=== PATIENT | male | born 1980 | race African-American/Black ===

== ENCOUNTER 2016-09-15 09:42 | Emergency (ER) | payer SELFPAY ==
[~2016-09-15] VITALS: Ht 185.4 cm; Wt 122.0 kg
[2016-09-15] MEDS ORDERED: MOTRIN800 MG PO (12:50)
[2016-09-15 12:51] VITALS: BP 149/82
== END 2016-09-15 12:53 | disposition home or self-care (01) ==
LOC: EME 09:42
DX: J02.9 Acute pharyngitis, unspecified (principal); R09.89 Other specified symptoms and signs involving the circulatory and respiratory systems; J30.2 Other seasonal allergic rhinitis
CPT/HCPCS: 87651 90; 99281; 99283; J1885

== ENCOUNTER 2016-09-17 06:02 | Emergency (ER) | payer OTHER ==
[~2016-09-17] VITALS: Ht 185.4 cm; Wt 120.3 kg
[~2016-09-17 06:02] MED LIST: MOTRIN800 MG PO
[2016-09-17 06:37] LABS: EOSINOPHIL (%) 0 % (0-5); HEMATOCRIT 42.9 % (38.0-50.0); IMMATURE GRANULOCYTE (%) 0.3 % (0.0-0.7); INSTRUMENT ABS NEUTROPHIL CT 6.4 K/uL; LYMPHOCYTE COUNT 1.1 K/uL (1.0-2.8); MCH 26.9 PG (29.0-34.0); MCHC 32.9 G/DL (30.0-36.0); MCV 81.7 FL (86-99); MEAN PLAT.VOLUME 11.1 uM^3 (9.0-12.4); MONOCYTE (%) 18.2 % (3-12); MONOCYTE COUNT 1.7 K/uL (0-0.8); NEUTROPHIL (%) 69.6 % (45-76); NEUTROPHIL COUNT 6.4 K/uL (1.8-6.4); PLATELET COUNT 186 K/uL (156-360); RBC DIS.WIDTH-CV 13.5 % (11.8-14.6); RBC DIS.WIDTH-SD 40.3 % (39-53); RED BLOOD COUNT 5.25 M/uL (4.00-5.50); WHITE BLOOD COUNT 9.2 K/uL (4.1-10.2)
[2016-09-17 06:45] LABS: CHLORIDE 102 mEq/L (99-109); POTASSIUM 3.6 mEq/L (3.7-5.4); SODIUM 136 mEq/L (136-147)
[2016-09-17 06:47] LABS: GLUCOSE 119 mg/dL (70-99)
[2016-09-17 06:48] LABS: ANION GAP 13 MEQ/L (2-14)
[2016-09-17 06:51] LABS: GFR ESTIMATE (CALCULATED) > 59 mL/min/
[2016-09-17 06:52] LABS: UREA NITROGEN (BUN) 14 mg/dL (9-23)
[2016-09-17 07:07] LABS: INTERNAL CONTROL VALID? YES; MONOSPOT (MONONUCLEOSIS SEROL) NEGATIVE
[2016-09-17] MEDS ORDERED: AUGMENTIN875 MG PO (10:55)
[2016-09-17 11:31] VITALS: BP 137/74
== END 2016-09-17 11:40 | disposition home or self-care (01) ==
LOC: EME 06:02
PROVIDERS: Emergency Medicine
DX: J02.9 Acute pharyngitis, unspecified (principal); R13.10 Dysphagia, unspecified
CPT/HCPCS: 70491; 80048; 85025; 86308; 87081; 87651 90; 99281; 99285; J7040